=== PATIENT | female | born 1985 | race Caucasian/White ===

== ENCOUNTER 2023-10-29 08:53 | Emergency (ER) | payer OTHER, SELFPAY ==
[2023-10-29 09:02] VITALS: BP 115/74; PULSE 95; TEMP 36.6; O2SAT 100; BMI 23.2
--- NOTE | 2023-10-29 09:20 | ED.SKABFB1 ---
HPI - Skin/Abscess/Foreign Bdy General Chief complaint: Skin/Abscess/Foreign Body Stated complaint: ALLERGIC REACTION Time Seen by Provider: 10/29/23 09:11 Source: patient Mode of arrival: walk-in Limitations: no limitations History of Present Illness HPI narrative: 38-year-old female presents for rash. She has been having this coming and going for about 3 weeks. They have been round and pruritic and on her arms and legs. She has looked for insects in her home and has not found any and her daughter sleeps in the same bed as the patient does and has had no rash. The patient does not believe that they are insect bites. She is been on no new medications and has not used any new detergents although she has been putting vinegar in her washer when she washes her clothing. No fever or cough. Related Data Previous Rx's ?Medication ?Instructions ?Recorded prednisone 10 mg tablet See Rx Instructions .Route 10/29/23 .COMPLEX #30 tabs Allergies Allergy/AdvReac Type Severity Reaction Status Date / Time Penicillins AdvReac Severe Verified 10/29/23 09:02 Review of Systems ROS Narrative A ten point review of systems is negative except as noted above. Exam Narrative Exam Narrative: Nurses note and vital signs reviewed and patient is not hypoxic. General: The patient appears well and in no apparent distress. Patient is resting comfortably on cart. Skin: Warm, dry, no pallor noted. There are several erythematous round areas primarily on her arms but also on her legs. None on the torso. There is no fluctuance or drainage. Head: Normocephalic, atraumatic Eye: Normal conjunctiva, no drainage Ears, Nose, Mouth, and Throat: oral mucosa is moist. Nares patent. Cardiovascular: Regular Rate and Rhythm Respiratory: Patient is in no distress, no accessory muscle use, lungs are clear to auscultation, no wheezing, rales or rhonchi Back: non-tender GI: Soft and Musculoskeletal: The patient has no evidence of calf tenderness, no pitting edema, symmetrical pulses noted bilaterally Neurological: A&O, normal speech Psychiatric: Cooperative Constitutional Vital Signs, click to edit/add: Last Vital Signs Temp 97.9 F 10/29/23 09:02 Pulse 95 H 10/29/23 09:02 Resp 18 10/29/23 09:02 BP 115/74 10/29/23 09:02 Pulse Ox 100 10/29/23 09:02 O2 Del Method Room Air 10/29/23 09:02 Course Vital Signs Vital signs: Vital Signs Temperature 97.9 F 10/29/23 09:02 Pulse Rate 95 H 10/29/23 09:02 Respiratory Rate 18 10/29/23 09:02 Blood Pressure 115/74 10/29/23 09:02 Pulse Oximetry 100 10/29/23 09:02 Oxygen Delivery Method Room Air 10/29/23 09:02 Temperature 97.9 F 10/29/23 09:02 Pulse Rate 95 H 10/29/23 09:02 Respiratory Rate 18 10/29/23 09:02 Blood Pressure 115/74 10/29/23 09:02 Pulse Oximetry 100 10/29/23 09:02 Oxygen Delivery Method Room Air 10/29/23 09:02 MDM - Skin/Abscess/Foreign Bdy MDM Narrative Medical decision making narrative: I do not suspect insect bites. She is given IM Solu-Medrol and prescribed prednisone and was given a list of PCPs with whom she can follow-up. Treatment diagnosis and follow-up were discussed with the patient. Differential Diagnosis Differential diagnosis: Likely urticaria, allergic reaction to drug, insect bites and contact dermatitis Discharge Plan Discharge Stand Alone Forms: Portal Instructions Chief Complaint: Skin/Abscess/Foreign Body Clinical Impression: Rash Patient Disposition: Home, Self-Care Time of Disposition Decision: 09:18 Condition: Good Mode of Transportation: Private Vehicle Prescriptions / Home Meds: New prednisone 10 mg tablet See Rx Instructions .ROUTE .COMPLEX Qty: 30 0RF Rx Instructions: 4 by mouth daily for three days then 3 by mouth daily for three days then 2 by mouth daily for three days then 1 by mouth daily for three days Print Language: Croatian Instructions: Acute Rash (ED) Referrals: Physician,Non-Staff, MD [Primary Care Provider] - 1 week
[2023-10-29] MEDS: METHYLPREDNISOLONE SOD SUCC PF 125 MG/2 ML VIAL IM (09:32)
== END 2023-10-29 09:35 | disposition home or self-care (01) ==
PROVIDERS: Emergency Provider Emergency Medicine
DX: R21 Rash and other nonspecific skin eruption (principal)
CPT/HCPCS: 96372; 99284; J2919